=== PATIENT | male | born 1985 | race Caucasian/White ===

== ENCOUNTER 2021-04-06 15:54 | Inpatient (IN) | payer MEDICAID, OTHER ==
[~2021-04-06] VITALS: Ht 172.7 cm; Wt 79.8 kg
[2021-04-06] MEDS ORDERED: ONDANSETRON ODT 4 MG TAB PO ONE (16:00)
[2021-04-06 16:48] LABS: Basophils # (auto) 0 10 ^3/uL (0-0.2); Eosinophils # (auto) 0 10 ^3/uL (0-0.8)
[2021-04-06 16:49] LABS: Basophils % (auto) 0.2 % (0.0-2.0); Hematocrit 43.9 % (41.0-53.0); Hemoglobin 14.3 g/dL (13.5-17.5); Lymphocytes % (auto) 6.2 % (10.0-50.0); Mean Corpuscular Hemoglobin 26.6 pg (28.0-32.0); Mean Corpuscular Hgb Conc. 32.6 g/dL (32.0-36.0); Mean Corpuscular Volume 81.6 fL (80.0-100.0); Monocytes # (auto) 0.5 10 ^3/uL (0-1.3); Monocytes % (auto) 2.9 % (0.0-12.0); Neutrophils # (auto) 14.3 10 ^3/uL (1.6-8.6); Neutrophils % (auto) 90.7 % (37.0-80.0); Platelet Count (auto) 264 10^3/uL (140-450); Red Blood Cells 5.38 10^6/uL (4.5-5.90); Red Cell Distribution Width 17.1 % (11.8-14.3); White Blood Cell 15.7 10^3/uL (4.4-10.8)
[2021-04-06 17:01] LABS: Albumin 4.3 g/dL (3.4-5.0); BUN/Creatinine Ratio 10.8; Calcium 9.5 mg/dL (8.5-10.1)
[2021-04-06 17:05] LABS: Bilirubin, Total 0.5 mg/dL (0.2-1.0); Total Protein 9.1 g/dL (6.4-8.2)
[2021-04-06] MEDS ORDERED: SODIUM CHLORIDE 0.9% 1,000 ML IVB ONE (19:15)
[2021-04-06] MEDS ORDERED: cefTRIAXone 1GM/50ML D5W 50 ML IV ONE (21:15)
[2021-04-06] MEDS ORDERED: metroNIDAZOLE 500MG/100ML 100 ML IV ONE (21:15)
[2021-04-06] MEDS ORDERED: ACETAMINOPHEN 325 MG TAB PO PRN (21:45)
[2021-04-06] MEDS ORDERED: MORPHINE SULF INJ 2 MG/ML SYRINGE 1ML IV PRN (21:45)
[2021-04-06] MEDS ORDERED: NITROGLYCERIN 0.4 MG SL TAB SL PRN (21:45)
[2021-04-06] MEDS ORDERED: HYDROcodone-ACET 5/325MG TAB PO PRN (21:45)
[2021-04-06] MEDS: metroNIDAZOLE 500MG/100ML 100 ML IV SCH (22:00)
[2021-04-06] MEDS: ONDANSETRON HCL 4 MG/2 ML VIAL IV PRN (22:45)
[2021-04-06] MEDS: FAMOTIDINE (10MG/ML) 2ML VL IV SCH (22:45)
[2021-04-06] MEDS: MORPHINE SULFATE 4 MG/ML SYR/VIAL IV PRN (22:45)
[2021-04-06] MEDS: SODIUM CHLORIDE 0.9% 1,000 ML IV SCH (22:45)
[2021-04-07] VITALS (8 sets, daily range): BP systolic 119–162; BP diastolic 71–79
[2021-04-07] MEDS: ONDANSETRON HCL 4 MG/2 ML VIAL IV PRN ×5 (02:26→18:15)
[2021-04-07] MEDS: MORPHINE SULFATE 4 MG/ML SYR/VIAL IV PRN ×7 (02:27→22:03)
[2021-04-07 05:58] LABS: Basophils # (auto) 0 10 ^3/uL (0-0.2); Basophils % (auto) 0.2 % (0.0-2.0); Eosinophils # (auto) 0 10 ^3/uL (0-0.8); Hematocrit 39.4 % (41.0-53.0); Hemoglobin 13.1 g/dL (13.5-17.5); Lymphocytes % (auto) 10.5 % (10.0-50.0); Mean Corpuscular Hemoglobin 27.3 pg (28.0-32.0); Mean Corpuscular Hgb Conc. 33.2 g/dL (32.0-36.0); Mean Corpuscular Volume 82.2 fL (80.0-100.0); Monocytes # (auto) 0.5 10 ^3/uL (0-1.3); Monocytes % (auto) 5.1 % (0.0-12.0); Neutrophils # (auto) 7.9 10 ^3/uL (1.6-8.6); Neutrophils % (auto) 84.2 % (37.0-80.0); Nucleated Red Blood Cells % 0.2 %; Platelet Count (auto) 265 10^3/uL (140-450); Red Blood Cells 4.79 10^6/uL (4.5-5.90); White Blood Cell 9.4 10^3/uL (4.4-10.8)
[2021-04-07 06:10] LABS: Albumin 3.7 g/dL (3.4-5.0); Calcium 8.7 mg/dL (8.5-10.1); Potassium 3.7 mmol/L (3.5-5.1)
[2021-04-07 06:15] LABS: Bilirubin, Total 0.5 mg/dL (0.2-1.0)
[2021-04-07] MEDS: metroNIDAZOLE 500MG/100ML 100 ML IV SCH ×3 (06:17→22:02)
[2021-04-07] MEDS: FAMOTIDINE (10MG/ML) 2ML VL IV SCH ×2 (09:07→22:03)
[2021-04-07] MEDS: ENOXAPARIN SOD 40 MG/0.4 ML SYRINGE SC SCH (09:07)
[2021-04-07] MEDS: cefTRIAXone 1GM/50ML D5W 50 ML IV SCH (09:08)
[2021-04-07] MEDS ORDERED: CALCIUM CARB 500 MG CHEW TAB PO PRN (14:45)
[2021-04-07] MEDS ORDERED: ALUM & MAG HYDROX-SIMETH LIQ(MAALOX) 30 ML PO PRN (14:45)
[2021-04-07] MEDS: SODIUM CHLORIDE 0.9% 1,000 ML IV SCH (14:49)
[2021-04-07] MEDS ORDERED: TEMAZEPAM 15 MG CAP PO ONE (21:00)
[2021-04-08 05:25] VITALS: BP 121/67
[2021-04-08] MEDS: metroNIDAZOLE 500MG/100ML 100 ML IV SCH ×2 (05:51→15:24)
[2021-04-08 06:10] LABS: Basophils # (auto) 0.1 10 ^3/uL (0-0.2); Basophils % (auto) 0.7 % (0.0-2.0); Eosinophils # (auto) 0 10 ^3/uL (0-0.8); Eosinophils % (auto) 0.3 % (0.0-7.0); Hematocrit 37.6 % (41.0-53.0); Hemoglobin 12.5 g/dL (13.5-17.5); Lymphocytes # (auto) 2.3 10 ^3/uL (0.4-5.4); Lymphocytes % (auto) 27.9 % (10.0-50.0); Mean Corpuscular Hemoglobin 27.1 pg (28.0-32.0); Mean Corpuscular Hgb Conc. 33.2 g/dL (32.0-36.0); Mean Corpuscular Volume 81.5 fL (80.0-100.0); Monocytes # (auto) 0.6 10 ^3/uL (0-1.3); Monocytes % (auto) 7.1 % (0.0-12.0); Neutrophils # (auto) 5.3 10 ^3/uL (1.6-8.6); Nucleated Red Blood Cells % 0.1 %; Platelet Count (auto) 191 10^3/uL (140-450); Red Blood Cells 4.62 10^6/uL (4.5-5.90); Red Cell Distribution Width 16.3 % (11.8-14.3); White Blood Cell 8.2 10^3/uL (4.4-10.8)
[2021-04-08] MEDS: SODIUM CHLORIDE 0.9% 1,000 ML IV SCH (06:10)
[2021-04-08 06:39] LABS: BUN/Creatinine Ratio 11.9; Calcium 8.4 mg/dL (8.5-10.1); Potassium 3.9 mmol/L (3.5-5.1)
[2021-04-08 08:55] VITALS: BP 137/86
[2021-04-08] MEDS: cefTRIAXone 1GM/50ML D5W 50 ML IV SCH (09:31)
[2021-04-08] MEDS: FAMOTIDINE (10MG/ML) 2ML VL IV SCH ×2 (09:31→22:00)
[2021-04-08] MEDS: ENOXAPARIN SOD 40 MG/0.4 ML SYRINGE SC SCH (09:31)
[2021-04-08] MEDS: ONDANSETRON HCL 4 MG/2 ML VIAL IV PRN ×2 (09:53→15:24)
[2021-04-08] MEDS: MORPHINE SULFATE 4 MG/ML SYR/VIAL IV PRN ×3 (09:53→20:14)
[2021-04-08 12:36] VITALS: BP 130/80
[2021-04-08] MEDS ORDERED: HYOSCYAMINE SULF 0.125 MG ODT TAB PO PRN (14:45)
[2021-04-08 16:55] VITALS: BP 123/81
[2021-04-08 22:00] VITALS: BP 124/74
[2021-04-09] MEDS: metroNIDAZOLE 500MG/100ML 100 ML IV SCH ×2 (00:54→05:57)
[2021-04-09 05:00] VITALS: BP 128/88
[2021-04-09 08:00] VITALS: BP 134/80
[2021-04-09] MEDS: MORPHINE SULFATE 4 MG/ML SYR/VIAL IV PRN (09:01)
[2021-04-09] MEDS: ONDANSETRON HCL 4 MG/2 ML VIAL IV PRN (09:01)
[2021-04-09] MEDS: cefTRIAXone 1GM/50ML D5W 50 ML IV SCH (09:02)
[2021-04-09 09:13] VITALS: BP 134/80
[2021-04-09] MEDS: FAMOTIDINE (10MG/ML) 2ML VL IV SCH (10:42)
[2021-04-09 12:58] VITALS: BP 134/80
[2021-04-09 13:08] VITALS: BP 131/81
== END 2021-04-09 15:30 | disposition home or self-care (01) | DRG 720 ==
LOC: ER 16:09 → TELE 21:47 → TELE-WESTW 23:34
PROVIDERS: ADMIT Nurse Practitioner Family; ATTEND Internal Medicine
DX: A41.9 Sepsis, unspecified organism (principal); K57.32 Diverticulitis of large intestine without perforation or abscess without bleeding; D63.8 Anemia in other chronic diseases classified elsewhere; R11.14 Bilious vomiting; R73.9 Hyperglycemia, unspecified; K21.9 Gastro-esophageal reflux disease without esophagitis; F12.10 Cannabis abuse, uncomplicated; F17.210 Nicotine dependence, cigarettes, uncomplicated; Z88.8 Allergy status to other drugs, medicaments and biological substances; Z20.822 Contact with and (suspected) exposure to COVID-19
CPT/HCPCS: 36415; 74176; 80048; 80053; 83036; 83690; 83735; 84443; 85025; 87426; 96361; 96365; 96368; G0378; J0696; J2405; J3490; Q0162

== ENCOUNTER 2021-04-18 16:12 | Inpatient (IN) | payer MEDICAID ==
[~2021-04-18] VITALS: Ht 175.3 cm; Wt 76.5 kg
[2021-04-18] MEDS ORDERED: SODIUM CHLORIDE 0.9% 1,000 ML IV ONE (16:30)
[2021-04-18] MEDS ORDERED: PROCHLORPERAZINE EDISYLATE 5 MG/ML 2ML VIAL IV ONE (16:30)
[2021-04-18] MEDS ORDERED: MORPHINE SULFATE 4 MG/ML SYR/VIAL IV ONE (16:30)
[2021-04-18] MEDS ORDERED: SODIUM CHLORIDE 0.9% 1,000 ML IVB ONE (16:30)
[2021-04-18 17:14] LABS: Basophils # (auto) 0.1 10 ^3/uL (0-0.2); Basophils % (auto) 0.6 % (0.0-2.0); Eosinophils # (auto) 0 10 ^3/uL (0-0.8); Hematocrit 45.2 % (41.0-53.0); Hemoglobin 15.1 g/dL (13.5-17.5); Lymphocytes # (auto) 1.2 10 ^3/uL (0.4-5.4); Lymphocytes % (auto) 8.2 % (10.0-50.0); Mean Corpuscular Hemoglobin 26.9 pg (28.0-32.0); Mean Corpuscular Hgb Conc. 33.4 g/dL (32.0-36.0); Mean Corpuscular Volume 80.5 fL (80.0-100.0); Monocytes # (auto) 0.3 10 ^3/uL (0-1.3); Monocytes % (auto) 1.8 % (0.0-12.0); Neutrophils # (auto) 13.3 10 ^3/uL (1.6-8.6); Neutrophils % (auto) 89.4 % (37.0-80.0); Nucleated Red Blood Cells % 0.4 %; Red Blood Cells 5.62 10^6/uL (4.5-5.90); Red Cell Distribution Width 16.7 % (11.8-14.3); White Blood Cell 14.9 10^3/uL (4.4-10.8)
[2021-04-18 17:21] LABS: Albumin 4.3 g/dL (3.4-5.0); Calcium 9.3 mg/dL (8.5-10.1); Potassium 3.6 mmol/L (3.5-5.1)
[2021-04-18 17:24] LABS: Lactic Acid w/Reflex 2.1 mmol/L (0.4-2.0)
[2021-04-18 17:27] LABS: BUN/Creatinine Ratio 10.3; Bilirubin, Total 0.5 mg/dL (0.2-1.0); Total Protein 8.9 g/dL (6.4-8.2)
[2021-04-18] MEDS ORDERED: cefTRIAXone 1GM/50ML D5W 50 ML IV ONE (18:30)
[2021-04-18] MEDS ORDERED: metroNIDAZOLE 500MG/100ML 100 ML IV ONE (18:30)
[2021-04-18] MEDS ORDERED: ONDANSETRON HCL 4 MG/2 ML VIAL IV ONE (22:45)
[2021-04-18 23:27] LABS: Urine Bacteria FEW /hpf (None Seen); Urine Blood Negative /uL (Negative); Urine Mucus FEW (None Seen); Urine Specific Gravity 1.026 (1.001-1.035); Urine WBC 1 /hpf (0 - 3)
[2021-04-19] VITALS (7 sets, daily range): BP systolic 136–164; BP diastolic 82–100
[2021-04-19] MEDS ORDERED: TEMAZEPAM 15 MG CAP PO PRN
[2021-04-19] MEDS ORDERED: HYDROcodone-ACET 5/325MG TAB PO PRN
[2021-04-19] MEDS ORDERED: ACETAMINOPHEN 325 MG TAB PO PRN
[2021-04-19] MEDS ORDERED: MORPHINE SULF INJ 2 MG/ML SYRINGE 1ML IV PRN
[2021-04-19] MEDS ORDERED: NITROGLYCERIN 0.4 MG SL TAB SL PRN
[2021-04-19] MEDS ORDERED: PROCHLORPERAZINE EDISYLATE 5 MG/ML 2ML VIAL IV ONE (00:15)
[2021-04-19] MEDS: SODIUM CHLORIDE 0.9% 1,000 ML IV SCH ×2 (00:27→17:08)
[2021-04-19] MEDS: MORPHINE SULFATE 4 MG/ML SYR/VIAL IV PRN ×6 (00:57→21:43)
[2021-04-19] MEDS ORDERED: ONDA-144 PO (01:55)
[2021-04-19] MEDS ORDERED: FAMO-12 PO (01:55)
[2021-04-19] MEDS: ONDANSETRON HCL 4 MG/2 ML VIAL IV PRN ×4 (05:28→21:44)
[2021-04-19 06:03] LABS: Basophils # (auto) 0 10 ^3/uL (0-0.2); Basophils % (auto) 0.2 % (0.0-2.0); Eosinophils # (auto) 0 10 ^3/uL (0-0.8); Hematocrit 40.4 % (41.0-53.0); Hemoglobin 13.5 g/dL (13.5-17.5); Lymphocytes # (auto) 1.3 10 ^3/uL (0.4-5.4); Lymphocytes % (auto) 7.9 % (10.0-50.0); Mean Corpuscular Hemoglobin 26.4 pg (28.0-32.0); Mean Corpuscular Hgb Conc. 33.4 g/dL (32.0-36.0); Monocytes # (auto) 0.7 10 ^3/uL (0-1.3); Monocytes % (auto) 4.3 % (0.0-12.0); Neutrophils # (auto) 14.5 10 ^3/uL (1.6-8.6); Neutrophils % (auto) 87.6 % (37.0-80.0); Nucleated Red Blood Cells % 0.1 %; Red Blood Cells 5.12 10^6/uL (4.5-5.90); Red Cell Distribution Width 16.6 % (11.8-14.3); White Blood Cell 16.6 10^3/uL (4.4-10.8)
[2021-04-19 06:21] LABS: Albumin 3.9 g/dL (3.4-5.0); Calcium 8.8 mg/dL (8.5-10.1); Potassium 3.4 mmol/L (3.5-5.1)
[2021-04-19 06:26] LABS: BUN/Creatinine Ratio 13.1; Bilirubin, Total 0.5 mg/dL (0.2-1.0)
[2021-04-19] MEDS: cefTRIAXone 1GM/50ML D5W 50 ML IV SCH (09:41)
[2021-04-19 09:47] LABS: Amylase 139 U/L (25-115); Lipase 102 U/L (73-393)
[2021-04-19] MEDS ORDERED: FAMOTIDINE (10MG/ML) 2ML VL IV SCH (10:00)
[2021-04-19] MEDS ORDERED: ENOXAPARIN SOD 40 MG/0.4 ML SYRINGE SC SCH (10:00)
[2021-04-19] MEDS ORDERED: OMNIPAQUE ORAL SOLN 500ml 12mg/ml PO ONE (13:35)
[2021-04-19] MEDS ORDERED: POTASSIUM CHLORIDE 20 MEQ, LIDOCAINE 1% (LOCAL ANESTH.) 2 ML in SODIUM CHL 0.9% 100 ML IV ONE (14:30)
[2021-04-19] MEDS: metroNIDAZOLE 500MG/100ML 100 ML IV SCH ×2 (14:51→21:43)
[2021-04-19] MEDS ORDERED: IOHEXOL 300 MG/ML 100ML BOTTLE IJ ONE (15:30)
[2021-04-19] MEDS: PANTOPRAZOLE 40 MG/10 ML VIAL INJ IV SCH (21:43)
[2021-04-20] MEDS: MORPHINE SULFATE 4 MG/ML SYR/VIAL IV PRN ×7 (02:34→23:04)
[2021-04-20] MEDS: ONDANSETRON HCL 4 MG/2 ML VIAL IV PRN ×5 (02:34→18:59)
[2021-04-20 04:53] VITALS: BP 140/99
[2021-04-20] MEDS: metroNIDAZOLE 500MG/100ML 100 ML IV SCH ×3 (06:17→22:54)
[2021-04-20 06:40] LABS: Basophils # (auto) 0.1 10 ^3/uL (0-0.2); Basophils % (auto) 0.5 % (0.0-2.0); Eosinophils # (auto) 0 10 ^3/uL (0-0.8); Eosinophils % (auto) 0.2 % (0.0-7.0); Hematocrit 37.7 % (41.0-53.0); Hemoglobin 12.4 g/dL (13.5-17.5); Lymphocytes # (auto) 2.2 10 ^3/uL (0.4-5.4); Lymphocytes % (auto) 18.1 % (10.0-50.0); Mean Corpuscular Hemoglobin 26.6 pg (28.0-32.0); Mean Corpuscular Volume 80.5 fL (80.0-100.0); Monocytes # (auto) 0.8 10 ^3/uL (0-1.3); Monocytes % (auto) 6.6 % (0.0-12.0); Neutrophils % (auto) 74.6 % (37.0-80.0); Red Blood Cells 4.68 10^6/uL (4.5-5.90); Red Cell Distribution Width 16.4 % (11.8-14.3); White Blood Cell 12.1 10^3/uL (4.4-10.8)
[2021-04-20 06:58] LABS: Calcium 8.4 mg/dL (8.5-10.1); Potassium 3.8 mmol/L (3.5-5.1)
[2021-04-20 07:01] LABS: BUN/Creatinine Ratio 10.4
[2021-04-20 09:00] VITALS: BP 150/81
[2021-04-20] MEDS: cefTRIAXone 1GM/50ML D5W 50 ML IV SCH (09:35)
[2021-04-20] MEDS: SODIUM CHLORIDE 0.9% 1,000 ML IV SCH ×4 (09:41→15:24)
[2021-04-20] MEDS: PANTOPRAZOLE 40 MG/10 ML VIAL INJ IV SCH ×2 (10:16→22:55)
[2021-04-20] MEDS: SUCRALFATE 1 GM/10 ML ORAL SUSP PO SCH ×3 (11:30→22:55)
[2021-04-20 13:00] VITALS: BP_SYST 148; BP_SYST 192; BP_DIAS 93; BP_DIAS 94
[2021-04-20 17:00] VITALS: BP 141/88
[2021-04-20 22:00] VITALS: BP 133/90
[2021-04-21] MEDS: MORPHINE SULFATE 4 MG/ML SYR/VIAL IV PRN ×4 (03:59→19:10)
[2021-04-21 05:00] VITALS: BP 138/85
[2021-04-21] MEDS: metroNIDAZOLE 500MG/100ML 100 ML IV SCH ×3 (05:41→21:21)
[2021-04-21] MEDS: SUCRALFATE 1 GM/10 ML ORAL SUSP PO SCH ×4 (05:41→21:21)
[2021-04-21 06:02] LABS: Eosinophils # (auto) 0.1 10 ^3/uL (0-0.8); Eosinophils % (auto) 1.1 % (0.0-7.0); Hemoglobin 13.2 g/dL (13.5-17.5); Lymphocytes # (auto) 1.9 10 ^3/uL (0.4-5.4); White Blood Cell 6.2 10^3/uL (4.4-10.8)
[2021-04-21 06:05] LABS: Basophils # (auto) 0 10 ^3/uL (0-0.2); Basophils % (auto) 0.7 % (0.0-2.0); Hematocrit 40.2 % (41.0-53.0); Lymphocytes % (auto) 30.6 % (10.0-50.0); Mean Corpuscular Hemoglobin 26.8 pg (28.0-32.0); Mean Corpuscular Hgb Conc. 32.8 g/dL (32.0-36.0); Mean Corpuscular Volume 81.7 fL (80.0-100.0); Monocytes # (auto) 0.6 10 ^3/uL (0-1.3); Monocytes % (auto) 8.9 % (0.0-12.0); Neutrophils # (auto) 3.6 10 ^3/uL (1.6-8.6); Neutrophils % (auto) 58.7 % (37.0-80.0); Red Blood Cells 4.92 10^6/uL (4.5-5.90); Red Cell Distribution Width 16.6 % (11.8-14.3)
[2021-04-21 08:00] VITALS: BP 136/86
[2021-04-21 08:39] VITALS: BP 136/86
[2021-04-21] MEDS: PANTOPRAZOLE 40 MG/10 ML VIAL INJ IV SCH ×2 (09:36→21:21)
[2021-04-21] MEDS: cefTRIAXone 1GM/50ML D5W 50 ML IV SCH (09:37)
[2021-04-21] MEDS: ONDANSETRON HCL 4 MG/2 ML VIAL IV PRN ×3 (09:51→19:10)
[2021-04-21 12:15] VITALS: BP 129/83
[2021-04-21 16:13] LABS: INR 0.99 (0.9-1.15); Partial Thromboplastin Time 28.2 sec (23.0-31.2)
[2021-04-21 17:00] VITALS: BP 129/105
[2021-04-21] MEDS: SOD CHL 0.45% WITH 20MEQ KCL 1,000 ML IV SCH (17:11)
[2021-04-21 22:00] VITALS: BP 131/85
[2021-04-22] MEDS: ONDANSETRON HCL 4 MG/2 ML VIAL IV PRN ×4 (00:19→20:08)
[2021-04-22] MEDS: MORPHINE SULFATE 4 MG/ML SYR/VIAL IV PRN ×6 (00:19→20:08)
[2021-04-22 00:52] LABS: Alcohol, Urine < 3.0 mg/dL (0-10); Amphetamine Screen, Urine NEGATIVE (NEGATIVE); Barbiturate Scree,Urine NEGATIVE (NEGATIVE); Benzodiazephine Screen, Urine NEGATIVE (NEGATIVE); Cannabinoid Screen, Urine POSITIVE (NEGATIVE); Cocaine Screen, Urine NEGATIVE (NEGATIVE); Opiate Scree,Urine POSITIVE (NEGATIVE); Phencyclidine Screen, Urine NEGATIVE (NEGATIVE)
[2021-04-22] MEDS: SOD CHL 0.45% WITH 20MEQ KCL 1,000 ML IV SCH ×3 (04:59→20:16)
[2021-04-22 05:09] VITALS: BP 131/93
[2021-04-22] MEDS: SUCRALFATE 1 GM/10 ML ORAL SUSP PO SCH ×4 (05:29→21:49)
[2021-04-22] MEDS: metroNIDAZOLE 500MG/100ML 100 ML IV SCH ×3 (05:36→21:49)
[2021-04-22] MEDS ORDERED: SODIUM CHLORIDE LOCK 10 ML ONE (08:27)
[2021-04-22] MEDS ORDERED: LIDOCAINE VISCOUS 2% 15ML UD ONE (08:27)
[2021-04-22] MEDS ORDERED: diphenhdrAMINE HCL 50 MG/1 ML VL ONE (08:28)
[2021-04-22 08:30] VITALS: BP 125/79
[2021-04-22] MEDS: cefTRIAXone 1GM/50ML D5W 50 ML IV SCH (08:47)
[2021-04-22 09:00] VITALS: BP 125/79
[2021-04-22] MEDS: PANTOPRAZOLE 40 MG/10 ML VIAL INJ IV SCH ×2 (09:02→21:49)
[2021-04-22] MEDS: fentaNYL CITRATE 100 MCG/2 ML VL ONE ×2 (11:18→11:21)
[2021-04-22] MEDS: MIDAZOLAM HCL 5 MG/ML-1ML VIAL ONE ×2 (11:18→11:21)
[2021-04-22 22:00] VITALS: BP 124/75
[2021-04-23 05:00] VITALS: BP 129/90
[2021-04-23] MEDS: metroNIDAZOLE 500MG/100ML 100 ML IV SCH ×2 (05:24→15:29)
[2021-04-23] MEDS: MORPHINE SULFATE 4 MG/ML SYR/VIAL IV PRN ×2 (05:24→11:39)
[2021-04-23] MEDS: SUCRALFATE 1 GM/10 ML ORAL SUSP PO SCH ×3 (05:24→17:32)
[2021-04-23 08:15] VITALS: BP 31/77
[2021-04-23] MEDS: cefTRIAXone 1GM/50ML D5W 50 ML IV SCH (09:11)
[2021-04-23] MEDS: PANTOPRAZOLE 40 MG/10 ML VIAL INJ IV SCH (09:11)
[2021-04-23 16:48] VITALS: BP 126/92
== END 2021-04-23 17:50 | disposition home or self-care (01) | DRG 241 ==
LOC: ER 16:12 → TELE 23:59 → TELE-CENTR 04-19 01:13 → CENTRAL 04-20 03:44
PROVIDERS: ADMIT Nurse Practitioner Family; ATTEND Internal Medicine
PROC: 0DB68ZX Excision of Stomach, Via Natural or Artificial Opening Endoscopic, Diagnostic (ICD-10-PCS; principal; 2021-04-22 11:10)
DX: K29.70 Gastritis, unspecified, without bleeding (principal); R65.11 Systemic inflammatory response syndrome (SIRS) of non-infectious origin with acute organ dysfunction; K85.90 Acute pancreatitis without necrosis or infection, unspecified; K20.90 Esophagitis, unspecified without bleeding; Z20.822 Contact with and (suspected) exposure to COVID-19; F12.10 Cannabis abuse, uncomplicated; F15.90 Other stimulant use, unspecified, uncomplicated; K57.90 Diverticulosis of intestine, part unspecified, without perforation or abscess without bleeding; K44.9 Diaphragmatic hernia without obstruction or gangrene; F17.210 Nicotine dependence, cigarettes, uncomplicated; K57.30 Diverticulosis of large intestine without perforation or abscess without bleeding; Z79.899 Other long term (current) drug therapy
CPT/HCPCS: 36415; 43239; 71045; 74176; 74177; 80048; 80053; 80307; 81001; 82150; 83605; 83690; 85025; 85610; 85730; 87040; 87081; 87426; 93005; 96365; 96368; 96375; C9113; G0378; J0696; J2001; J2250; J2405; J3490

== ENCOUNTER 2021-05-06 15:40 | Emergency (ER) | payer MEDICAID ==
[~2021-05-06] VITALS: Ht 175.3 cm; Wt 72.6 kg
[~2021-05-06 15:40] MED LIST: FAMO-12 PO; ONDA-144 PO
[2021-05-06 16:29] LABS: Eosinophils # (auto) 0 10 ^3/uL (0-0.8); Lymphocytes # (auto) 1.1 10 ^3/uL (0.4-5.4); Monocytes # (auto) 0.3 10 ^3/uL (0-1.3); Nucleated Red Blood Cells % 0.1 %
[2021-05-06 16:30] LABS: Basophils # (auto) 0 10 ^3/uL (0-0.2); Basophils % (auto) 0.4 % (0.0-2.0); Hematocrit 43.7 % (41.0-53.0); Hemoglobin 14.9 g/dL (13.5-17.5); Lymphocytes % (auto) 10.4 % (10.0-50.0); Mean Corpuscular Hemoglobin 27.3 pg (28.0-32.0); Mean Corpuscular Hgb Conc. 34.1 g/dL (32.0-36.0); Mean Corpuscular Volume 80.1 fL (80.0-100.0); Monocytes % (auto) 2.9 % (0.0-12.0); Neutrophils # (auto) 8.9 10 ^3/uL (1.6-8.6); Neutrophils % (auto) 86.3 % (37.0-80.0); Red Blood Cells 5.45 10^6/uL (4.5-5.90); Red Cell Distribution Width 16.7 % (11.8-14.3); White Blood Cell 10.3 10^3/uL (4.4-10.8)
[2021-05-06 17:12] LABS: Albumin 4.9 g/dL (3.4-5.0); Calcium 9.6 mg/dL (8.5-10.1); Potassium 3.9 mmol/L (3.5-5.1)
[2021-05-06 17:17] LABS: BUN/Creatinine Ratio 17.9; Bilirubin, Total 0.9 mg/dL (0.2-1.0); Total Protein 8.9 g/dL (6.4-8.2)
[2021-05-06] MEDS ORDERED: SODIUM CHLORIDE 0.9% 1,000 ML IV ONE (17:45)
[2021-05-06] MEDS ORDERED: MORPHINE SULFATE INJECTION 2 MG/ML SYRG IV ONE (17:45)
[2021-05-06] MEDS ORDERED: ONDANSETRON HCL 4 MG/2 ML VIAL IV ONE (17:45)
[2021-05-06] MEDS ORDERED: PANTOPRAZOLE 40 MG/10 ML VIAL INJ IV ONE (17:45)
[2021-05-06 19:44] VITALS: BP 159/92
== END 2021-05-06 21:00 | disposition home or self-care (01) ==
LOC: ER 15:40
DX: K80.20 Calculus of gallbladder without cholecystitis without obstruction (principal); K57.32 Diverticulitis of large intestine without perforation or abscess without bleeding; K20.90 Esophagitis, unspecified without bleeding; F17.210 Nicotine dependence, cigarettes, uncomplicated; F12.10 Cannabis abuse, uncomplicated
CPT/HCPCS: 36415; 74176; 80053; 85025; 85049; 96361; 96374; 96375; 99284; C9113; J2270; J2405; J7030

== ENCOUNTER 2021-05-08 11:00 | Inpatient (IN) | payer MEDICAID ==
[~2021-05-08] VITALS: Ht 175.3 cm; Wt 91.9 kg
[2021-05-08 11:49] LABS: Basophils # (auto) 0.1 10 ^3/uL (0-0.2); Basophils % (auto) 0.8 % (0.0-2.0); Eosinophils # (auto) 0 10 ^3/uL (0-0.8); Hematocrit 44.4 % (41.0-53.0); Hemoglobin 14.8 g/dL (13.5-17.5); Lymphocytes # (auto) 1.6 10 ^3/uL (0.4-5.4); Lymphocytes % (auto) 23.6 % (10.0-50.0); Mean Corpuscular Hemoglobin 26.7 pg (28.0-32.0); Mean Corpuscular Hgb Conc. 33.3 g/dL (32.0-36.0); Mean Corpuscular Volume 80.1 fL (80.0-100.0); Monocytes # (auto) 0.4 10 ^3/uL (0-1.3); Monocytes % (auto) 6.1 % (0.0-12.0); Neutrophils # (auto) 4.8 10 ^3/uL (1.6-8.6); Neutrophils % (auto) 69.5 % (37.0-80.0); Nucleated Red Blood Cells % 0.1 %; Platelet Count (auto) 226 10^3/uL (140-450); Red Blood Cells 5.54 10^6/uL (4.5-5.90); White Blood Cell 6.9 10^3/uL (4.4-10.8)
[2021-05-08 12:13] LABS: Albumin 4.8 g/dL (3.4-5.0); Calcium 10.1 mg/dL (8.5-10.1); Magnesium 2.7 mg/dL (1.6-2.6); Potassium 3.7 mmol/L (3.5-5.1)
[2021-05-08 12:18] LABS: BUN/Creatinine Ratio 14.8; Total Protein 9.2 g/dL (6.4-8.2)
[2021-05-08] MEDS ORDERED: SODIUM CHLORIDE 0.9% 1,000 ML IV ONE (13:15)
[2021-05-08] MEDS ORDERED: ONDANSETRON HCL 4 MG/2 ML VIAL IV ONE ×2 (13:15→16:15)
[2021-05-08] MEDS ORDERED: SODIUM CHLORIDE 0.9% 1,000 ML IVB ONE (13:15)
[2021-05-08] MEDS ORDERED: PANTOPRAZOLE 40 MG/10 ML VIAL INJ IV ONE (15:15)
[2021-05-08] MEDS ORDERED: MORPHINE SULF INJ 2 MG/ML SYRINGE 1ML IV ONE (16:15)
[2021-05-08] MEDS ORDERED: cefTRIAXone 1GM/50ML D5W 50 ML IV ONE (17:00)
[2021-05-08] MEDS ORDERED: MORPHINE SULF INJ 2 MG/ML SYRINGE 1ML IV PRN (18:30)
[2021-05-08] MEDS ORDERED: NITROGLYCERIN 0.4 MG SL TAB SL PRN (18:30)
[2021-05-08] MEDS: SOD CHL 0.9%/ KCL 20MEQ 1,000 ML IV SCH ×2 (18:41→18:49)
[2021-05-08 19:12] LABS: Urine Bacteria FEW /hpf (None Seen); Urine Blood Negative /uL (Negative); Urine Mucus FEW (None Seen); Urine Specific Gravity 1.032 (1.001-1.035); Urine WBC 1 /hpf (0 - 3)
[2021-05-08 19:24] LABS: Amphetamine Screen, Urine NEGATIVE (NEGATIVE); Barbiturate Scree,Urine NEGATIVE (NEGATIVE); Benzodiazephine Screen, Urine NEGATIVE (NEGATIVE); Cannabinoid Screen, Urine POSITIVE (NEGATIVE); Cocaine Screen, Urine NEGATIVE (NEGATIVE); Opiate Scree,Urine POSITIVE (NEGATIVE); Phencyclidine Screen, Urine NEGATIVE (NEGATIVE)
[2021-05-08 20:10] VITALS: BP 165/88
[2021-05-08] MEDS: MORPHINE SULF INJ 2 MG/ML SYRINGE 1ML IV PRN (20:34)
[2021-05-08] MEDS: ONDANSETRON HCL 4 MG/2 ML VIAL IV PRN (20:34)
[2021-05-08 22:00] VITALS: BP 141/84
[2021-05-08] MEDS: metroNIDAZOLE 500MG/100ML 100 ML IV SCH (22:23)
[2021-05-09] MEDS: ONDANSETRON HCL 4 MG/2 ML VIAL IV PRN ×4 (00:35→23:42)
[2021-05-09] MEDS: MORPHINE SULF INJ 2 MG/ML SYRINGE 1ML IV PRN ×3 (00:36→10:37)
[2021-05-09] MEDS: SOD CHL 0.9%/ KCL 20MEQ 1,000 ML IV SCH ×3 (03:58→19:10)
[2021-05-09 05:00] VITALS: BP 164/98
[2021-05-09] MEDS: metroNIDAZOLE 500MG/100ML 100 ML IV SCH ×3 (05:32→21:39)
[2021-05-09 06:31] LABS: Basophils # (auto) 0 10 ^3/uL (0-0.2); Eosinophils # (auto) 0 10 ^3/uL (0-0.8); Hemoglobin 13.1 g/dL (13.5-17.5); Neutrophils # (auto) 4.1 10 ^3/uL (1.6-8.6); Nucleated Red Blood Cells % 0.1 %; White Blood Cell 5.9 10^3/uL (4.4-10.8)
[2021-05-09 06:35] LABS: Basophils % (auto) 0.5 % (0.0-2.0); Hematocrit 39.6 % (41.0-53.0); Lymphocytes # (auto) 1.2 10 ^3/uL (0.4-5.4); Lymphocytes % (auto) 20.8 % (10.0-50.0); Mean Corpuscular Hemoglobin 26.9 pg (28.0-32.0); Mean Corpuscular Hgb Conc. 33.1 g/dL (32.0-36.0); Mean Corpuscular Volume 81.3 fL (80.0-100.0); Monocytes # (auto) 0.5 10 ^3/uL (0-1.3); Monocytes % (auto) 9.1 % (0.0-12.0); Neutrophils % (auto) 69.6 % (37.0-80.0); Platelet Count (auto) 181 10^3/uL (140-450); Red Blood Cells 4.87 10^6/uL (4.5-5.90); Red Cell Distribution Width 16.7 % (11.8-14.3)
[2021-05-09 06:42] LABS: INR 1.05 (0.9-1.15); Partial Thromboplastin Time 27.4 sec (23.0-31.2)
[2021-05-09 06:49] LABS: Albumin 3.8 g/dL (3.4-5.0); Calcium 8.6 mg/dL (8.5-10.1); Potassium 4.3 mmol/L (3.5-5.1)
[2021-05-09 06:52] LABS: BUN/Creatinine Ratio 13.4; Bilirubin, Total 0.8 mg/dL (0.2-1.0); Total Protein 7.5 g/dL (6.4-8.2)
[2021-05-09 09:00] VITALS: BP 151/97
[2021-05-09] MEDS: PANTOPRAZOLE 40 MG/10 ML VIAL INJ IV SCH (09:52)
[2021-05-09] MEDS: cefTRIAXone 1GM/50ML D5W 50 ML IV SCH (09:52)
[2021-05-09] MEDS ORDERED: ONDANSETRON HCL 4 MG/2 ML VIAL ONE (12:20)
[2021-05-09] MEDS ORDERED: fentaNYL CITRATE 100 MCG/2 ML VL ONE ×2 (12:20→13:31)
[2021-05-09] MEDS ORDERED: ROCURONIUM 10MG/ML 10ML VIAL IV ONE (12:20)
[2021-05-09] MEDS ORDERED: HYDROmorphone HCL 2 MG/ML VL ONE (12:20)
[2021-05-09] MEDS ORDERED: MIDAZOLAM HCL 1MG/1ML-2 ML VIAL ONE (12:20)
[2021-05-09] MEDS ORDERED: PROPOFOL 10 MG/ML 20 ML IV ONE (12:20)
[2021-05-09] MEDS ORDERED: KETOROLAC TROMETH 30 MG/ML 1ML VIAL ONE (12:20)
[2021-05-09] MEDS ORDERED: DexAMETHasone SOD PHOS 10MG/1ML VIAL INJ ONE (12:20)
[2021-05-09] MEDS ORDERED: GLYCOPYRROLATE 0.2 MG/ML 1ML VIAL ONE (12:20)
[2021-05-09] MEDS ORDERED: LIDOCAINE 2% (LOCAL ANESTH.) PF 5ml SDV ONE (12:20)
[2021-05-09] MEDS ORDERED: LIDOCAINE W/ EPINEPHRINE 1% 20ML VIAL ONE (12:46)
[2021-05-09] MEDS ORDERED: BUPIVACAINE 0.25% INJ 50ML VIAL ONE (12:46)
[2021-05-09] MEDS ORDERED: SUCCINYLCHOLINE CHLORIDE 20 MG/ML 10ML VIAL IV ONE (12:59)
[2021-05-09] MEDS ORDERED: MEPERIDINE HCL (50 MG/ML) 1 ML VIAL ONE (13:46)
[2021-05-09] MEDS ORDERED: POVIDONE IODINE 10 % TOPICAL OINT 30GM TOP ONE (14:12)
[2021-05-09] MEDS ORDERED: ALUM & MAG HYDROX-SIMETH LIQ(MAALOX) 30 ML PO ONE (14:15)
[2021-05-09] MEDS ORDERED: ONDANSETRON HCL 4 MG/2 ML VIAL IV PRN (15:00)
[2021-05-09] MEDS ORDERED: HYDROmorphone HCL 2 MG/ML VL IV PRN (15:00)
[2021-05-09 17:00] VITALS: BP 149/98
[2021-05-09] MEDS: HYDROmorphone HCL 2 MG/ML VL IV PRN ×2 (19:09→23:42)
[2021-05-09 22:00] VITALS: BP 133/93
[2021-05-09] MEDS ORDERED: ALUM & MAG HYDROX-SIMETH LIQ(MAALOX) 30 ML PO PRN (22:00)
[2021-05-10] MEDS: SOD CHL 0.9%/ KCL 20MEQ 1,000 ML IV SCH ×3 (04:00→20:30)
[2021-05-10] MEDS: ONDANSETRON HCL 4 MG/2 ML VIAL IV PRN (04:19)
[2021-05-10] MEDS: HYDROmorphone HCL 2 MG/ML VL IV PRN ×3 (04:19→13:55)
[2021-05-10 05:00] VITALS: BP 128/90
[2021-05-10] MEDS: metroNIDAZOLE 500MG/100ML 100 ML IV SCH ×3 (06:01→21:55)
[2021-05-10 06:19] LABS: Basophils # (auto) 0 10 ^3/uL (0-0.2); Eosinophils # (auto) 0 10 ^3/uL (0-0.8); Hemoglobin 11.9 g/dL (13.5-17.5); Monocytes # (auto) 0.8 10 ^3/uL (0-1.3); Nucleated Red Blood Cells % 0.1 %
[2021-05-10 06:24] LABS: Basophils % (auto) 0.1 % (0.0-2.0); Hematocrit 35.9 % (41.0-53.0); Lymphocytes # (auto) 1.6 10 ^3/uL (0.4-5.4); Lymphocytes % (auto) 19.3 % (10.0-50.0); Mean Corpuscular Hemoglobin 26.8 pg (28.0-32.0); Mean Corpuscular Hgb Conc. 33.1 g/dL (32.0-36.0); Mean Corpuscular Volume 80.9 fL (80.0-100.0); Neutrophils # (auto) 5.9 10 ^3/uL (1.6-8.6); Neutrophils % (auto) 70.6 % (37.0-80.0); Platelet Count (auto) 167 10^3/uL (140-450); Red Blood Cells 4.43 10^6/uL (4.5-5.90); Red Cell Distribution Width 16.2 % (11.8-14.3); White Blood Cell 8.4 10^3/uL (4.4-10.8)
[2021-05-10 09:00] VITALS: BP 145/95
[2021-05-10] MEDS: cefTRIAXone 1GM/50ML D5W 50 ML IV SCH (09:00)
[2021-05-10] MEDS: PANTOPRAZOLE 40 MG/10 ML VIAL INJ IV SCH (10:00)
[2021-05-10 12:41] VITALS: BP 145/93
[2021-05-10 16:34] VITALS: BP 143/89
[2021-05-10] MEDS: KETOROLAC TROMETH 30 MG/ML 1ML VIAL IV PRN (18:55)
[2021-05-10 22:00] VITALS: BP 161/106
[2021-05-10 23:49] VITALS: BP 140/91
[2021-05-11] MEDS: KETOROLAC TROMETH 30 MG/ML 1ML VIAL IV PRN (01:16)
[2021-05-11 05:00] VITALS: BP 131/85
[2021-05-11] MEDS: metroNIDAZOLE 500MG/100ML 100 ML IV SCH (06:07)
[2021-05-11 08:50] VITALS: BP 139/90
[2021-05-11] MEDS: cefTRIAXone 1GM/50ML D5W 50 ML IV SCH (09:00)
[2021-05-11] MEDS: PANTOPRAZOLE 40 MG/10 ML VIAL INJ IV SCH (10:00)
[2021-05-11 12:42] VITALS: BP 145/98
== END 2021-05-11 14:00 | disposition home or self-care (01) | DRG 419 ==
LOC: ER 11:00 → WEST WING 17:46 → ER 17:46 → OVERFLOW 18:18 → WEST WING 20:08
PROVIDERS: ADMIT Nurse Practitioner Acute Care; ATTEND Family Medicine
PROC: 0FT44ZZ Resection of Gallbladder, Percutaneous Endoscopic Approach (ICD-10-PCS; principal; 2021-05-09 12:59)
DX: K80.00 Calculus of gallbladder with acute cholecystitis without obstruction (principal); K29.70 Gastritis, unspecified, without bleeding; K20.90 Esophagitis, unspecified without bleeding; E86.0 Dehydration; F12.10 Cannabis abuse, uncomplicated; Z20.822 Contact with and (suspected) exposure to COVID-19; K52.9 Noninfective gastroenteritis and colitis, unspecified; Z82.49 Family history of ischemic heart disease and other diseases of the circulatory system; Z90.49 Acquired absence of other specified parts of digestive tract; Z88.8 Allergy status to other drugs, medicaments and biological substances; Z79.899 Other long term (current) drug therapy; Z80.9 Family history of malignant neoplasm, unspecified
CPT/HCPCS: 36415; 74176; 76705; 80053; 80307; 81001; 82150; 82247; 83690; 83735; 85025; 85049; 85610; 85730; 87081; 87426; 96361; 96374; 96375; C9113; G0378; J0330; J0696; J1100; J1885; J2001; J2250; J2405; J2704; J3490

== ENCOUNTER 2021-06-21 13:26 | Emergency (ER) | payer MEDICAID ==
[~2021-06-21] VITALS: Ht 175.3 cm; Wt 70.3 kg
[2021-06-21] MEDS ORDERED: MORPHINE SULFATE 4 MG/ML SYR/VIAL IV ONE (13:45)
[2021-06-21] MEDS ORDERED: SODIUM CHLORIDE 0.9% 1,000 ML IVB ONE (13:45)
[2021-06-21] MEDS ORDERED: PROCHLORPERAZINE EDISYLATE 5 MG/ML 2ML VIAL IV ONE (13:45)
[2021-06-21] MEDS ORDERED: PANTOPRAZOLE 40 MG/10 ML VIAL INJ IV ONE (13:45)
[2021-06-21 14:44] LABS: Basophils # (auto) 0.1 10 ^3/uL (0-0.2); Basophils % (auto) 0.4 % (0.0-2.0); Eosinophils # (auto) 0 10 ^3/uL (0-0.8); Hematocrit 45.4 % (41.0-53.0); Hemoglobin 14.8 g/dL (13.5-17.5); Lymphocytes % (auto) 6.1 % (10.0-50.0); Mean Corpuscular Hemoglobin 25.9 pg (28.0-32.0); Mean Corpuscular Hgb Conc. 32.6 g/dL (32.0-36.0); Mean Corpuscular Volume 79.3 fL (80.0-100.0); Monocytes # (auto) 0.5 10 ^3/uL (0-1.3); Neutrophils # (auto) 15.6 10 ^3/uL (1.6-8.6); Neutrophils % (auto) 90.5 % (37.0-80.0); Nucleated Red Blood Cells % 0.2 %; Red Blood Cells 5.72 10^6/uL (4.5-5.90); Red Cell Distribution Width 17.7 % (11.8-14.3); White Blood Cell 17.2 10^3/uL (4.4-10.8)
[2021-06-21 15:15] LABS: Albumin 4.5 g/dL (3.4-5.0); Calcium 9.7 mg/dL (8.5-10.1); Potassium 4.2 mmol/L (3.5-5.1)
[2021-06-21 15:20] LABS: BUN/Creatinine Ratio 13.7; Bilirubin, Total 0.5 mg/dL (0.2-1.0); Total Protein 9.5 g/dL (6.4-8.2)
[2021-06-21] MEDS ORDERED: ONDANSETRON HCL 4 MG/2 ML VIAL ONE (16:44)
[2021-06-21] MEDS ORDERED: ONDANSETRON HCL 4 MG/2 ML VIAL IV ONE (16:45)
[2021-06-21 17:49] VITALS: BP 100/61
== END 2021-06-21 17:50 | disposition home or self-care (01) ==
LOC: ER 13:26
DX: R11.2 Nausea with vomiting, unspecified (principal); R10.13 Epigastric pain; F12.10 Cannabis abuse, uncomplicated; Z90.49 Acquired absence of other specified parts of digestive tract; Z79.899 Other long term (current) drug therapy; Z88.8 Allergy status to other drugs, medicaments and biological substances
CPT/HCPCS: 36415; 80053; 83690; 85025; 96361; 96374; 96375; 99284; C9113; J0780; J2270; J2405; J7030

== ENCOUNTER 2021-06-23 14:09 | Emergency (ER) | payer MEDICAID ==
[~2021-06-23] VITALS: Ht 175.3 cm; Wt 70.3 kg
[2021-06-23] MEDS ORDERED: KETOROLAC TROMETH 30 MG/ML 1ML VIAL IV ONE (15:30)
[2021-06-23] MEDS ORDERED: SODIUM CHLORIDE 0.9% 1,000 ML IV ONE (15:30)
[2021-06-23] MEDS ORDERED: PROCHLORPERAZINE EDISYLATE 5 MG/ML 2ML VIAL IV ONE (15:30)
[2021-06-23] MEDS ORDERED: ONDANSETRON HCL 4 MG/2 ML VIAL IV ONE (15:30)
[2021-06-23] MEDS ORDERED: FAMOTIDINE (10MG/ML) 2ML VL IV ONE (15:30)
[2021-06-23 15:39] LABS: Basophils # (auto) 0.1 10 ^3/uL (0-0.2); Nucleated Red Blood Cells % 0.1 %; Red Cell Distribution Width 18.1 % (11.8-14.3)
[2021-06-23 15:40] LABS: Basophils % (auto) 0.5 % (0.0-2.0); Eosinophils # (auto) 0.1 10 ^3/uL (0-0.8); Eosinophils % (auto) 0.3 % (0.0-7.0); Hematocrit 46.8 % (41.0-53.0); Hemoglobin 15.4 g/dL (13.5-17.5); Lymphocytes # (auto) 2.5 10 ^3/uL (0.4-5.4); Lymphocytes % (auto) 13.8 % (10.0-50.0); Mean Corpuscular Hemoglobin 25.8 pg (28.0-32.0); Mean Corpuscular Volume 78.3 fL (80.0-100.0); Monocytes # (auto) 1.9 10 ^3/uL (0-1.3); Monocytes % (auto) 10.8 % (0.0-12.0); Neutrophils # (auto) 13.4 10 ^3/uL (1.6-8.6); Neutrophils % (auto) 74.6 % (37.0-80.0); Red Blood Cells 5.97 10^6/uL (4.5-5.90)
[2021-06-23 15:55] LABS: Albumin 4.8 g/dL (3.4-5.0); Calcium 10.2 mg/dL (8.5-10.1); Potassium 3.2 mmol/L (3.5-5.1)
[2021-06-23 15:58] LABS: BUN/Creatinine Ratio 19.3; Bilirubin, Total 1.2 mg/dL (0.2-1.0); Total Protein 10.2 g/dL (6.4-8.2)
[2021-06-23] MEDS ORDERED: POTASSIUM EFFERVESENT TAB 25 MEQ GT ONE (16:30)
[2021-06-23 18:26] VITALS: BP 122/88
== END 2021-06-23 18:28 | disposition home or self-care (01) ==
LOC: ER 14:09
DX: R11.15 Cyclical vomiting syndrome unrelated to migraine (principal); Z88.8 Allergy status to other drugs, medicaments and biological substances; Z79.899 Other long term (current) drug therapy; Z90.49 Acquired absence of other specified parts of digestive tract
CPT/HCPCS: 36415; 74176; 80053; 83690; 85025; 96361; 96374; 96375; 99284; J0780; J1885; J2405; J3490

== ENCOUNTER 2021-07-16 22:59 | Emergency (ER) | payer MEDICAID ==
[~2021-07-16] VITALS: Ht 175.3 cm; Wt 70.3 kg
[2021-07-16 23:31] LABS: Eosinophils # (auto) 0 10 ^3/uL (0-0.8); Hemoglobin 12.2 g/dL (13.5-17.5); Monocytes # (auto) 0.3 10 ^3/uL (0-1.3); Neutrophils # (auto) 7.5 10 ^3/uL (1.6-8.6)
[2021-07-16 23:34] LABS: Basophils # (auto) 0.1 10 ^3/uL (0-0.2); Basophils % (auto) 0.8 % (0.0-2.0); Hematocrit 38.4 % (41.0-53.0); Lymphocytes # (auto) 0.9 10 ^3/uL (0.4-5.4); Mean Corpuscular Hemoglobin 25.1 pg (28.0-32.0); Mean Corpuscular Hgb Conc. 31.8 g/dL (32.0-36.0); Monocytes % (auto) 2.9 % (0.0-12.0); Neutrophils % (auto) 86.3 % (37.0-80.0); Red Blood Cells 4.86 10^6/uL (4.5-5.90); White Blood Cell 8.7 10^3/uL (4.4-10.8)
[2021-07-16 23:49] LABS: Albumin 4.4 g/dL (3.4-5.0); BUN/Creatinine Ratio 12.1; Calcium 9.5 mg/dL (8.5-10.1); Potassium 3.9 mmol/L (3.5-5.1)
[2021-07-16 23:52] LABS: Bilirubin, Total 0.6 mg/dL (0.2-1.0); Total Protein 8.7 g/dL (6.4-8.2)
[2021-07-17] MEDS ORDERED: ONDANSETRON HCL 4 MG/2 ML VIAL IV ONE (01:15)
[2021-07-17] MEDS ORDERED: SODIUM CHLORIDE 0.9% 1,000 ML IV ONE (01:15)
[2021-07-17] MEDS ORDERED: FAMOTIDINE (10MG/ML) 2ML VL IV ONE (01:30)
[2021-07-17] MEDS ORDERED: PROMETHAZINE HCL 25 MG/ML 1ML IV ONE (01:30)
[2021-07-17] MEDS ORDERED: HALOPERIDOL LACTATE 5 MG/ML INJ VIAL IV ONE (02:30)
[2021-07-17] MEDS ORDERED: HALOPERIDOL LACTATE 5 MG/ML INJ VIAL IM ONE (02:45)
[2021-07-17 03:12] VITALS: BP 112/55
== END 2021-07-17 03:11 | disposition home or self-care (01) ==
LOC: ER 22:59
DX: F12.188 Cannabis abuse with other cannabis-induced disorder (principal); Z90.49 Acquired absence of other specified parts of digestive tract; Z88.8 Allergy status to other drugs, medicaments and biological substances
CPT/HCPCS: 36415; 80053; 82150; 83690; 85025; 96361; 96372; 96374; 96375; 99284; J1630; J2405; J2550; J3490; J7030

== ENCOUNTER 2021-10-09 13:51 | Emergency (ER) | payer MEDICAID ==
[~2021-10-09] VITALS: Ht 172.7 cm; Wt 72.6 kg
[2021-10-09 14:38] LABS: Eosinophils # (auto) 0 10 ^3/uL (0-0.8); Monocytes # (auto) 0.3 10 ^3/uL (0-1.3); Monocytes % (auto) 2.3 % (0.0-12.0)
[2021-10-09 14:42] LABS: Basophils # (auto) 0.1 10 ^3/uL (0-0.2); Basophils % (auto) 0.5 % (0.0-2.0); Hematocrit 40.3 % (41.0-53.0); Hemoglobin 12.7 g/dL (13.5-17.5); Lymphocytes # (auto) 0.8 10 ^3/uL (0.4-5.4); Lymphocytes % (auto) 7.1 % (10.0-50.0); Mean Corpuscular Hemoglobin 22.7 pg (28.0-32.0); Mean Corpuscular Hgb Conc. 31.5 g/dL (32.0-36.0); Mean Corpuscular Volume 71.9 fL (80.0-100.0); Neutrophils # (auto) 10.4 10 ^3/uL (1.6-8.6); Neutrophils % (auto) 90.1 % (37.0-80.0); Nucleated Red Blood Cells % 0.1 %; Red Cell Distribution Width 18.1 % (11.8-14.3); White Blood Cell 11.5 10^3/uL (4.4-10.8)
[2021-10-09 15:01] LABS: Albumin 4.5 g/dL (3.4-5.0); Calcium 9.7 mg/dL (8.5-10.1); Potassium 4.4 mmol/L (3.5-5.1)
[2021-10-09 15:05] LABS: BUN/Creatinine Ratio 13.4; Bilirubin, Total 0.5 mg/dL (0.2-1.0); Total Protein 8.6 g/dL (6.4-8.2)
[2021-10-09] MEDS ORDERED: CIPROFLOXACIN HCL 500 MG TAB PO ONE (20:30)
[2021-10-09] MEDS ORDERED: ONDANSETRON ODT 4 MG TAB PO ONE (20:30)
[2021-10-09] MEDS ORDERED: OXYCODONE W/ ACETAMINOPHEN 5/325MG TABLET PO ONE (20:30)
[2021-10-09] MEDS ORDERED: ONDA-144 PO (20:34)
[2021-10-09] MEDS ORDERED: METR500T PO (20:34)
[2021-10-09] MEDS ORDERED: CIPR-273 PO (20:34)
[2021-10-09] MEDS ORDERED: PERCOT PO (20:34)
[2021-10-09 21:05] VITALS: BP 147/102
== END 2021-10-09 21:12 | disposition home or self-care (01) ==
LOC: ER 13:51
DX: K52.9 Noninfective gastroenteritis and colitis, unspecified (principal); Z90.49 Acquired absence of other specified parts of digestive tract; Z79.899 Other long term (current) drug therapy; Z88.5 Allergy status to narcotic agent
CPT/HCPCS: 36415; 74176; 80053; 83690; 85025; 99284; Q0162

== ENCOUNTER 2021-12-02 09:42 | Outpatient (CLI) | payer MEDICAID ==
[~2021-12-02] VITALS: Ht 175.3 cm; Wt 68.0 kg
[~2021-12-02 09:42] MED LIST changes: +CIPR-273 PO; +METR500T PO; +PERCOT PO
[2021-12-02 10:15] LABS: Basophils # (auto) 0 10 ^3/uL (0-0.2); Basophils % (auto) 0.4 % (0.0-2.0); Eosinophils # (auto) 0.1 10 ^3/uL (0-0.8); Eosinophils % (auto) 1.2 % (0.0-7.0); Hemoglobin 11.1 g/dL (13.5-17.5); Lymphocytes # (auto) 1.9 10 ^3/uL (0.4-5.4); Lymphocytes % (auto) 38.2 % (10.0-50.0); Mean Corpuscular Hemoglobin 23.8 pg (28.0-32.0); Mean Corpuscular Volume 76.9 fL (80.0-100.0); Monocytes # (auto) 0.4 10 ^3/uL (0-1.3); Monocytes % (auto) 7.7 % (0.0-12.0); Neutrophils # (auto) 2.7 10 ^3/uL (1.6-8.6); Neutrophils % (auto) 52.5 % (37.0-80.0); Red Blood Cells 4.68 10^6/uL (4.5-5.90); Red Cell Distribution Width 20.9 % (11.8-14.3); White Blood Cell 5.1 10^3/uL (4.4-10.8)
[2021-12-02 10:29] LABS: INR 0.95 (0.9-1.15); Partial Thromboplastin Time 25.7 sec (23.6-33.0)
[2021-12-02 10:42] LABS: Albumin 3.6 g/dL (3.4-5.0); Potassium 4.4 mmol/L (3.5-5.1)
[2021-12-02 10:44] LABS: BUN/Creatinine Ratio 7.7
[2021-12-02 10:47] LABS: Bilirubin, Total 0.3 mg/dL (0.2-1.0)
[2021-12-02] MEDS ORDERED: FERR-7 PO (15:34)
[2021-12-02] MEDS ORDERED: PANT40TA2 PO (15:34)
[2021-12-02] MEDS ORDERED: POTA10TA51 PO (15:34)
== END 2021-12-02 11:41 | disposition home or self-care (01) ==
LOC: LAB 09:42 → EDSTATUS 01-01 08:00
PROVIDERS: ATTEND Internal Medicine Gastroenterology
DX: R10.9 Unspecified abdominal pain (principal); Z20.822 Contact with and (suspected) exposure to COVID-19
CPT/HCPCS: 36415; 80053; 85025; 85610; 85730; U0003

== ENCOUNTER → 2022-02-12 | Day surgery (SDC) | payer MEDICAID ==
[2022-02-10 11:13] LABS: Basophils # (auto) 0.1 10 ^3/uL (0-0.2); Eosinophils # (auto) 0.1 10 ^3/uL (0-0.8); Hemoglobin 11.6 g/dL (13.5-17.5); Mean Corpuscular Volume 76.1 fL (80.0-100.0); Monocytes # (auto) 0.4 10 ^3/uL (0-1.3); Nucleated Red Blood Cells % 0.1 %
[2022-02-10 11:15] LABS: Basophils % (auto) 0.8 % (0.0-2.0); Eosinophils % (auto) 1.1 % (0.0-7.0); Hematocrit 36.7 % (41.0-53.0); Lymphocytes # (auto) 1.5 10 ^3/uL (0.4-5.4); Lymphocytes % (auto) 23.2 % (10.0-50.0); Mean Corpuscular Hgb Conc. 31.6 g/dL (32.0-36.0); Monocytes % (auto) 5.7 % (0.0-12.0); Neutrophils # (auto) 4.5 10 ^3/uL (1.6-8.6); Neutrophils % (auto) 69.2 % (37.0-80.0); Red Blood Cells 4.83 10^6/uL (4.5-5.90); Red Cell Distribution Width 16.2 % (11.8-14.3); White Blood Cell 6.5 10^3/uL (4.4-10.8)
[2022-02-10 11:36] LABS: INR 0.98 (0.9-1.15); Partial Thromboplastin Time 26.2 sec (23.6-33.0)
[2022-02-10 12:06] LABS: Calcium 9.4 mg/dL (8.5-10.1); Potassium 4.7 mmol/L (3.5-5.1)
[2022-02-10 12:11] LABS: BUN/Creatinine Ratio 12.1; Bilirubin, Total 0.4 mg/dL (0.2-1.0); Total Protein 7.9 g/dL (6.4-8.2)
[~2022-02-12] VITALS: Ht 175.3 cm; Wt 68.0 kg
[~2022-02-12] MED LIST changes: +ACE3T PO; -FAMO-12 PO; +FERR-7 PO; +LIDOCAINE VISCOUS 2% 15ML UD ONE; +ONDANSETRON HCL 4 MG/2 ML VIAL ONE; +PANT40TA2 PO; +POTA10TA51 PO; +SODIUM CHLORIDE LOCK 10 ML ONE
[2022-02-12] MEDS: MIDAZOLAM HCL 5 MG/ML-1ML VIAL ONE ×3 (15:38→15:44)
[2022-02-12] MEDS: fentaNYL CITRATE 100 MCG/2 ML VL ONE ×4 (15:38→15:52)
[2022-02-12] MEDS: diphenhdrAMINE HCL 50 MG/1 ML VL ONE ×2 (15:38→15:41)
[2022-02-12 16:15] VITALS: BP 112/67
== END | disposition home or self-care (01) ==
LOC: GI 14:15
PROVIDERS: ATTEND Internal Medicine Gastroenterology
DX: R11.2 Nausea with vomiting, unspecified (principal); K29.50 Unspecified chronic gastritis without bleeding; K21.00 Gastro-esophageal reflux disease with esophagitis, without bleeding; B37.81 Candidal esophagitis; K22.70 Barrett's esophagus without dysplasia; K44.9 Diaphragmatic hernia without obstruction or gangrene; I10 Essential (primary) hypertension; Z95.0 Presence of cardiac pacemaker; Z88.8 Allergy status to other drugs, medicaments and biological substances; Z79.899 Other long term (current) drug therapy; Z20.822 Contact with and (suspected) exposure to COVID-19; Z90.49 Acquired absence of other specified parts of digestive tract; Z80.8 Family history of malignant neoplasm of other organs or systems
CPT/HCPCS: 36415; 43239; 80053; 85025; 85610; 85730; 88305; 88312; 88342; J1200; J2250; J2405; J3010; J7030; U0003; 99152

== ENCOUNTER 2022-02-19 09:48 | Day surgery (SDC) | payer MEDICAID ==
[2022-02-17 14:50] LABS: Basophils # (auto) 0.1 10 ^3/uL (0-0.2); Hemoglobin 11.1 g/dL (13.5-17.5); Monocytes # (auto) 0.5 10 ^3/uL (0-1.3); Neutrophils # (auto) 3.2 10 ^3/uL (1.6-8.6); Nucleated Red Blood Cells % 0.1 %
[2022-02-17 14:52] LABS: Basophils % (auto) 1.6 % (0.0-2.0); Eosinophils # (auto) 0.2 10 ^3/uL (0-0.8); Eosinophils % (auto) 2.6 % (0.0-7.0); Lymphocytes # (auto) 2.3 10 ^3/uL (0.4-5.4); Lymphocytes % (auto) 37.2 % (10.0-50.0); Mean Corpuscular Hemoglobin 23.8 pg (28.0-32.0); Mean Corpuscular Hgb Conc. 31.6 g/dL (32.0-36.0); Mean Corpuscular Volume 75.5 fL (80.0-100.0); Monocytes % (auto) 7.5 % (0.0-12.0); Neutrophils % (auto) 51.1 % (37.0-80.0); Red Blood Cells 4.63 10^6/uL (4.5-5.90); Red Cell Distribution Width 16.1 % (11.8-14.3); White Blood Cell 6.2 10^3/uL (4.4-10.8)
[2022-02-17 15:08] LABS: INR 0.96 (0.9-1.15); Partial Thromboplastin Time 26.6 sec (23.6-33.0)
[2022-02-17 15:13] LABS: Albumin 3.8 g/dL (3.4-5.0); Calcium 8.9 mg/dL (8.5-10.1); Potassium 4.5 mmol/L (3.5-5.1)
[2022-02-17 15:15] LABS: BUN/Creatinine Ratio 11.1
[2022-02-17 15:17] LABS: Bilirubin, Total 0.3 mg/dL (0.2-1.0); Total Protein 7.5 g/dL (6.4-8.2)
[2022-02-17 15:20] LABS: Urine Bacteria NONE SEEN /hpf (None Seen); Urine Blood Negative /uL (Negative); Urine Mucus FEW (None Seen); Urine Specific Gravity 1.024 (1.001-1.035); Urine WBC <1 /hpf (0 - 3)
[~2022-02-19] VITALS: Ht 175.3 cm; Wt 68.0 kg
[~2022-02-19 09:48] MED LIST changes: -ACE3T PO; -LIDOCAINE VISCOUS 2% 15ML UD ONE; -ONDANSETRON HCL 4 MG/2 ML VIAL ONE; -SODIUM CHLORIDE LOCK 10 ML ONE
[2022-02-19] MEDS ORDERED: ceFAZolin 1GM/50ML 100 ML IV ONE (10:00)
[2022-02-19] MEDS ORDERED: ROCURONIUM 10MG/ML 10ML VIAL IV ONE (10:32)
[2022-02-19] MEDS ORDERED: fentaNYL CITRATE 100 MCG/2 ML VL ONE (10:32)
[2022-02-19] MEDS ORDERED: GLYCOPYRROLATE 0.2 MG/ML 1ML VIAL ONE (10:33)
[2022-02-19] MEDS ORDERED: MIDAZOLAM HCL 2MG/2ML 2ml VIAL (1mg/ml) ONE (10:33)
[2022-02-19] MEDS ORDERED: ONDANSETRON HCL 4 MG/2 ML VIAL ONE (10:33)
[2022-02-19] MEDS ORDERED: SODIUM CHLORIDE LOCK 10 ML ONE (10:33)
[2022-02-19] MEDS ORDERED: NEOSTIGMINE 1 MG/ML INJ (10mg/10ML VIAL) ONE (10:33)
[2022-02-19] MEDS ORDERED: PROPOFOL 10 MG/ML 20 ML IV ONE (10:33)
[2022-02-19] MEDS ORDERED: FAMOTIDINE (10MG/ML) 2ML VL IV ONE (11:05)
[2022-02-19] MEDS ORDERED: MEPERIDINE HCL (25 MG/ML) 1ML VIAL ONE (11:48)
[2022-02-19] MEDS ORDERED: BUPIVACAINE W/ EPINEPH 0.25% INJ 50ML MDV ONE (12:07)
[2022-02-19] MEDS ORDERED: KETOROLAC TROMETH 30 MG/ML 1ML VIAL ONE (12:26)
[2022-02-19] MEDS ORDERED: ACE3T PO (12:55)
[2022-02-19] MEDS ORDERED: MORPHINE SULFATE 4 MG/ML SYR/VIAL IV PRN (13:00)
[2022-02-19] MEDS: HYDROmorphone HCL 2 MG/ML VL/or syr IV PRN ×3 (13:05→13:25)
[2022-02-19] MEDS ORDERED: HYDROmorphone HCL 2 MG/ML VL/or syr ONE (13:05)
[2022-02-19 13:35] VITALS: BP 126/78
== END 2022-02-19 14:05 | disposition home or self-care (01) ==
LOC: SUR 09:48
PROVIDERS: ATTEND Surgery
DX: K43.2 Incisional hernia without obstruction or gangrene (principal); N18.1 Chronic kidney disease, stage 1; K21.9 Gastro-esophageal reflux disease without esophagitis; Z88.8 Allergy status to other drugs, medicaments and biological substances; Z80.9 Family history of malignant neoplasm, unspecified; Z79.899 Other long term (current) drug therapy; Z20.822 Contact with and (suspected) exposure to COVID-19; Z90.49 Acquired absence of other specified parts of digestive tract
CPT/HCPCS: 36415; 49565; 80053; 81001; 85025; 85610; 85730; 86850; 86900; 86901; J0690; J1170; J1885; J2175; J2250; J2405; J2704; J3010; J3490; U0003

== ENCOUNTER 2022-04-11 11:59 | Emergency (ER) | payer MEDICAID ==
[~2022-04-11] VITALS: Ht 175.3 cm; Wt 66.7 kg
[~2022-04-11 11:59] MED LIST changes: +ACE3T PO
[2022-04-11 13:22] LABS: Basophils # (auto) 0 10 ^3/uL (0-0.2); Eosinophils # (auto) 0 10 ^3/uL (0-0.8); Monocytes # (auto) 0.6 10 ^3/uL (0-1.3); Nucleated Red Blood Cells % 0.1 %
[2022-04-11 13:24] LABS: Basophils % (auto) 0.5 % (0.0-2.0); Eosinophils % (auto) 0.1 % (0.0-7.0); Hemoglobin 13.2 g/dL (13.5-17.5); Lymphocytes # (auto) 2.1 10 ^3/uL (0.4-5.4); Lymphocytes % (auto) 24.9 % (10.0-50.0); Mean Corpuscular Hemoglobin 24.2 pg (28.0-32.0); Mean Corpuscular Volume 73.2 fL (80.0-100.0); Monocytes % (auto) 6.9 % (0.0-12.0); Neutrophils # (auto) 5.6 10 ^3/uL (1.6-8.6); Neutrophils % (auto) 67.6 % (37.0-80.0); Red Blood Cells 5.46 10^6/uL (4.5-5.90); Red Cell Distribution Width 18.2 % (11.8-14.3); White Blood Cell 8.3 10^3/uL (4.4-10.8)
[2022-04-11 13:45] LABS: Albumin 4.9 g/dL (3.4-5.0); BUN/Creatinine Ratio 18.1; Calcium 9.5 mg/dL (8.5-10.1); Potassium 3.6 mmol/L (3.5-5.1)
[2022-04-11 13:51] LABS: Bilirubin, Total 1.4 mg/dL (0.2-1.0); Total Protein 9.3 g/dL (6.4-8.2)
[2022-04-11] MEDS ORDERED: PANT40TA2 PO (14:24)
[2022-04-11 14:30] LABS: Urine Bacteria FEW /hpf (None Seen); Urine Blood Negative /uL (Negative); Urine Hyaline Cast FEW /lpf (0 - 2); Urine Mucus FEW (None Seen); Urine WBC 1 /hpf (0 - 3)
[2022-04-11 15:23] VITALS: BP 134/98
== END 2022-04-11 15:25 | disposition home or self-care (01) ==
LOC: ER 11:59
DX: K29.70 Gastritis, unspecified, without bleeding (principal); I10 Essential (primary) hypertension; F12.10 Cannabis abuse, uncomplicated; Z90.49 Acquired absence of other specified parts of digestive tract
CPT/HCPCS: 36415; 74176; 80053; 81001; 84484; 85025

== ENCOUNTER 2023-02-01 04:19 | Emergency (ER) | payer MEDICAID ==
[~2023-02-01] VITALS: Ht 170.2 cm; Wt 68.5 kg
[2023-02-01 06:39] LABS: Basophils # (auto) 0.1 10 ^3/uL (0-0.2); Eosinophils # (auto) 0 10 ^3/uL (0-0.8); Monocytes # (auto) 0.7 10 ^3/uL (0-1.3); Neutrophils % (auto) 80.1 % (37.0-80.0)
[2023-02-01 06:41] LABS: Basophils % (auto) 0.6 % (0.0-2.0); Hematocrit 47.7 % (41.0-53.0); Hemoglobin 15.8 g/dL (13.5-17.5); Lymphocytes # (auto) 1.5 10 ^3/uL (0.4-5.4); Lymphocytes % (auto) 12.9 % (10.0-50.0); Mean Corpuscular Hemoglobin 25.1 pg (28.0-32.0); Mean Corpuscular Hgb Conc. 33.1 g/dL (32.0-36.0); Mean Corpuscular Volume 75.8 fL (80.0-100.0); Monocytes % (auto) 6.4 % (0.0-12.0); Neutrophils # (auto) 9.2 10 ^3/uL (1.6-8.6); Nucleated Red Blood Cells % 0.5 %; Red Cell Distribution Width 18.2 % (11.8-14.3); White Blood Cell 11.6 10^3/uL (4.4-10.8)
[2023-02-01] MEDS ORDERED: SODIUM CHLORIDE 0.9% 1,000 ML IV ONE (06:45)
[2023-02-01] MEDS ORDERED: diphenhdrAMINE HCL 50 MG/1 ML VL IV ONE (06:45)
[2023-02-01] MEDS ORDERED: PROCHLORPERAZINE EDISYLATE 5 MG/ML 2ML VIAL IV ONE (06:45)
[2023-02-01 07:14] LABS: Albumin 5.2 g/dL (3.4-5.0); Potassium 3.1 mmol/L (3.5-5.1)
[2023-02-01 07:18] LABS: BUN/Creatinine Ratio 20.3 (10.0-20.0); Bilirubin, Total 1.1 mg/dL (0.2-1.0); Total Protein 10.7 g/dL (6.4-8.2)
[2023-02-01] MEDS ORDERED: MORPHINE SULFATE 4 MG/ML SYR/VIAL IV ONE (09:00)
[2023-02-01 10:00] VITALS: BP 118/66
[2023-02-01] MEDS ORDERED: PANTOPRAZOLE 40 MG/10 ML VIAL INJ IV ONE (11:00)
[2023-02-01 12:20] LABS: Urine Bacteria NONE SEEN /hpf (None Seen); Urine Blood Negative /uL (Negative); Urine Mucus FEW (None Seen); Urine Specific Gravity 1.031 (1.001-1.035); Urine WBC 2 /hpf (0 - 3)
[2023-02-01] MEDS ORDERED: PROC10TA2 PO (13:06)
[2023-02-01] MEDS ORDERED: ONDA-144 PO (14:26)
== END 2023-02-01 15:04 | disposition home or self-care (01) ==
LOC: EDBD 04:19 → ER 04:19
DX: K29.70 Gastritis, unspecified, without bleeding (principal); Z79.2 Long term (current) use of antibiotics; Z79.899 Other long term (current) drug therapy
CPT/HCPCS: 36415; 74176; 80053; 81001; 83690; 85025; 96361; 96374; 96375; 99285; C9113; J0780; J1200; J2270; J7030

== ENCOUNTER 2023-02-27 10:42 | Emergency (ER) | payer MEDICAID ==
[~2023-02-27] VITALS: Ht 175.3 cm; Wt 65.4 kg
[~2023-02-27 10:42] MED LIST changes: +PROC10TA2 PO
[2023-02-27 11:32] LABS: Basophils # (auto) 0.1 10 ^3/uL (0-0.2); Eosinophils # (auto) 0 10 ^3/uL (0-0.8); Nucleated Red Blood Cells % 0.2 %; Red Cell Distribution Width 18.3 % (11.8-14.3)
[2023-02-27 11:33] LABS: Basophils % (auto) 0.7 % (0.0-2.0); Hematocrit 42.4 % (41.0-53.0); Hemoglobin 13.6 g/dL (13.5-17.5); Lymphocytes # (auto) 1.8 10 ^3/uL (0.4-5.4); Lymphocytes % (auto) 20.9 % (10.0-50.0); Mean Corpuscular Hemoglobin 24.2 pg (28.0-32.0); Mean Corpuscular Hgb Conc. 32.1 g/dL (32.0-36.0); Mean Corpuscular Volume 75.5 fL (80.0-100.0); Monocytes # (auto) 0.5 10 ^3/uL (0-1.3); Monocytes % (auto) 6.2 % (0.0-12.0); Neutrophils # (auto) 6.4 10 ^3/uL (1.6-8.6); Neutrophils % (auto) 72.2 % (37.0-80.0); Red Blood Cells 5.62 10^6/uL (4.5-5.90); White Blood Cell 8.8 10^3/uL (4.4-10.8)
[2023-02-27 11:53] LABS: Albumin 4.7 g/dL (3.4-5.0); Calcium 10.1 mg/dL (8.5-10.1); Potassium 3.2 mmol/L (3.5-5.1)
[2023-02-27] MEDS ORDERED: MAALOX PLUS or MAALOX 30 ML PO ONE (14:30)
[2023-02-27] MEDS ORDERED: DONNATAL 5ml ORAL Elix (BELLADONNA ALK-PHENOBARB) PO ONE (14:30)
[2023-02-27] MEDS ORDERED: LIDOCAINE VISCOUS 2% 15ML UD PO ONE (14:30)
[2023-02-27 16:15] VITALS: BP 126/82
== END 2023-02-27 16:16 | disposition home or self-care (01) ==
LOC: ER 10:42
DX: R10.30 Lower abdominal pain, unspecified (principal); R11.2 Nausea with vomiting, unspecified; I10 Essential (primary) hypertension; Z90.49 Acquired absence of other specified parts of digestive tract; Z98.890 Other specified postprocedural states; Z88.8 Allergy status to other drugs, medicaments and biological substances
CPT/HCPCS: 36415; 74176; 80053; 83690; 85025